=== PATIENT | male | born 1960 | race African-American/Black ===

== ENCOUNTER 2017-09-22 16:42 | Emergency (ER) | payer BC ==
[~2017-09-22] VITALS: Ht 170.2 cm; Wt 65.0 kg
[2017-09-22 19:08] LABS: BASOPHILS % 1.5 % (0.0-2.0); EOSINOPHILS % 13.1 % (0.0-5.0); HEMATOCRIT. 33.1 % (42.0-52.0); HEMOGLOBIN. 10.8 g/dL (14.0-18.0); LYMPHOCYTES % 25.3 % (20.0-50.0); MEAN CORPUSCULAR HEMOGLOBIN 28.2 pg (28.0-32.0); MEAN CORPUSCULAR VOLUME 86.4 fL (80.0-94.0); MEAN PLATELET VOLUME 7.9 fl (7.4-10.4); MONOCYTES % 10.9 % (2.0-8.0); NEUTROPHILS % 49.2 % (40.0-76.0); PLATELET 289 x1000/uL (130-400); RED BLOOD CELL COUNT 3.83 mill/uL (4.7-6.1); RED CELL DISTRIBUTION WIDTH 16.5 % (11.6-14.6)
[2017-09-22 19:14] LABS: PARTIAL THROMBOPLASTIN TIME 24.9 sec (23.4-31.0); PROTHROMBIN TIME 10.7 sec (9.4-11.6)
[2017-09-22 19:23] LABS: CHLORIDE 108 mEq/L (98-107); PHOSPHORUS 3.1 mg/dL (2.5-4.9)
[2017-09-22 19:26] LABS: TROPONIN I < 0.02 ng/mL (0.00-0.04)
[2017-09-22 19:43] VITALS: BP 137/85
== END 2017-09-22 19:56 | disposition home or self-care (01) ==
LOC: ER 17:24
DX: J45.901 Unspecified asthma with (acute) exacerbation (principal); N17.9 Acute kidney failure, unspecified; D64.9 Anemia, unspecified; I12.0 Hypertensive chronic kidney disease with stage 5 chronic kidney disease or end stage renal disease; N18.6 End stage renal disease; Z99.2 Dependence on renal dialysis
CPT/HCPCS: 36415; 71045; 80053; 83690; 83735; 84100; 84484; 85025; 85610; 85730; 93005; 99285; Z7610